=== PATIENT | male | born 1995 | race Caucasian/White ===

== ENCOUNTER 2019-06-01 23:47 | Emergency (ER) | payer OTHER ==
[~2019-06-01] VITALS: Ht 182.9 cm; Wt 113.4 kg
== END 2019-06-02 01:21 | disposition home or self-care (01) ==
LOC: ED 23:47
DX: R51 Headache (principal); F17.200 Nicotine dependence, unspecified, uncomplicated; Z90.89 Acquired absence of other organs
CPT/HCPCS: 96374; 96375; 99283-25; J1200; J1885; J2765; J7030